=== PATIENT | female | born 1955 | race Caucasian/White ===

== ENCOUNTER 2017-02-24 13:04 | Outpatient (RCR) | payer BC, OTHER ==
[~2017-02-24 13:04] MED LIST: ASP81TEC PO; FISH OIL 1,2001 EAC1 PO
== END 2017-03-18 09:56 | disposition home or self-care (01) ==
PROVIDERS: ATTEND Orthopaedic Surgery
DX: M54.16 Radiculopathy, lumbar region (principal)

== ENCOUNTER 2017-03-30 15:53 | Outpatient (RCR) | payer BC | END 2017-04-20 08:51 | disposition home or self-care (01) | PROVIDERS: ATTEND Physician Assistant Medical | DX: M25.561 Pain in right knee (principal) ==

== ENCOUNTER → 2017-08-11 | Outpatient (CLI) | payer BC ==
--- NOTE | 2017-08-11 18:24 | Diagnostic Imaging Report ---
Bilateral screening mammogram 2D views with tomosynthesis The current study was also evaluated with a Computer Aided Detection (CAD) system. INDICATION: Screening. No current complaints stated on the questionnaire. COMPARISON: 08/10/2016. FINDINGS: The breasts are composed of heterogeneously dense parenchyma which may decrease mammographic sensitivity. There is no mass, architectural distortion, or suspicious cluster of calcifications seen. Allowing for technique and positional differences, no suspicious change is seen. IMPRESSION: Dense breasts with no definite change. ACR BI-RADS Category 2: Benign findings. Result letter will be mailed to the patient. Note: At least 10% of breast cancer is not imaged by mammography. Dictated by: Dictated on workstation # [id number]
== END ==
LOC: RAD 07:20
PROVIDERS: ATTEND Family Medicine
DX: Z12.31 Encounter for screening mammogram for malignant neoplasm of breast (principal)
CPT/HCPCS: 77067

== ENCOUNTER 2017-12-10 14:55 | Inpatient (IN) | payer BC ==
[~2017-12-10] VITALS: Ht 157.5 cm; Wt 48.8 kg
[2017-12-10] MEDS ORDERED: NS IV 1000 ML 1,000 ML IV SCH (15:47)
[2017-12-10] MEDS ORDERED: KETOROLAC 30 MG/ML VIAL IVP ONE (16:00)
[2017-12-10] MEDS ORDERED: ONDANSETRON 4 MG/2 ML (SDV) Z0FRAN IVP ONE (16:00)
[2017-12-10 16:11] LABS: BILIRUBIN,URINE NEGATIVE (NEGATIVE); CLARITY,URINE CLEAR; COLOR,URINE YELLOW; GLUCOSE, URINE (UA) NEGATIVE (NEGATIVE); KETONES,URINE 3+ (NEGATIVE); LEUKOCYTE ESTERASE ,URINE 1+ (NEGATIVE); NITRITE,URINE NEGATIVE (NEGATIVE); PH,URINE 6 (5-9); PROTEIN,URINE 2+ (NEGATIVE); UROBILINOGEN,URINE NORMAL (NORMAL)
[2017-12-10 16:19] LABS: BACTERIA,URINE NEGATIVE /HPF; RBC,URINE 0-2 /HPF; WBC,URINE RARE /HPF
[2017-12-10 16:19] LABS: BASOPHILS # (AUTO) 0.1 10^3/uL (0.0-0.1); BASOPHILS % (AUTO) 1 % (0-10); EOSINOPHILS # (AUTO) 0.1 10^3/uL (0.0-0.3); EOSINOPHILS % (AUTO) 2 % (0-10); HEMATOCRIT 35 % (35-52); LYMPHOCYTES # (AUTO) 1.8 X 10^3 (1.0-4.0); LYMPHOCYTES % (AUTO) 21 % (12-44); MEAN CORPUSCULAR HEMOGLOBIN 32 PG (25-34); MEAN CORPUSCULAR HGB CONC 34 G/DL (32-36); MEAN CORPUSCULAR VOLUME 93 FL (80-99); MEAN PLATELET VOLUME 9.9 FL (7.4-10.4); MONOCYTES # (AUTO) 0.6 X 10^3 (0.0-1.0); MONOCYTES % (AUTO) 7 % (0-12); NEUTROPHILS % (AUTO) 70 % (42-75); PLATELET COUNT 312 10^3/uL (130-400); RED BLOOD COUNT 3.81 10^6/uL (4.35-5.85); RED CELL DISTRIBUTION WIDTH 12.4 % (10.0-14.5); WHITE BLOOD COUNT 8.7 10^3/uL (4.3-11.0)
[2017-12-10 16:20] LABS: ALANINE AMINOTRANSFERASE 22 U/L (0-55); ALBUMIN 4.5 GM/DL (3.2-4.5); ALKALINE PHOSPHATASE 36 U/L (40-136); BILIRUBIN,TOTAL 0.8 MG/DL (0.1-1.0); BUN/CREATININE RATIO 18; CALCIUM 9.2 MG/DL (8.5-10.1); CARBON DIOXIDE 25 MMOL/L (21-32); CHLORIDE 99 MMOL/L (98-107); CREATININE SERUM 0.85 MG/DL (0.60-1.30); GFR ESTIMATED > 60; GLUCOSE 152 MG/DL (70-105); POTASSIUM 3.5 MMOL/L (3.6-5.0); SODIUM 136 MMOL/L (135-145); TOTAL PROTEIN 7.2 GM/DL (6.4-8.2)
[2017-12-10] MEDS ORDERED: fentaNYL INJECTION 100 MCG/2 ML AMP IVP PRN (16:30)
[2017-12-10] MEDS ORDERED: fentaNYL INJECTION 100 MCG/2 ML AMP IVP ONE (17:00)
--- NOTE | 2017-12-10 17:09 | Diagnostic Imaging Report ---
EXAMINATION: CHEST (PA AND LATERAL). CLINICAL INDICATION: 62-year-old female, sudden onset right rib pain. COMPARISON: None. FINDINGS: Heart size and mediastinal contours are unremarkable. There is no identified pneumothorax. There is no pleural effusion. There is no identified focal airspace consolidation. There is an anchor overlying the left humeral head. There is no identified displaced rib fracture. There are moderate right acromioclavicular degenerative changes. There are mild disc degenerative changes of the thoracic spine. IMPRESSION: 1. No identified acute cardiopulmonary abnormality. 2. No identified displaced rib fracture. Dictated on workstation # [id number]
[2017-12-10] MEDS ORDERED: HYDROmorphone (DILAUDID) 2 MG/ML VIAL IVP STA ×2 (17:11→19:02)
--- NOTE | 2017-12-10 17:13 | ED General ---
General Chief Complaint: Chest Wall/Rib Pain Stated Complaint: PAIN RIGHT LOWER SIDE Nursing Triage Note: SUDDEN ONSET OF RIGHT SIDED RIB PAIN. STATES SHE HAS BEEN CLEANING TODAY. Nursing Sepsis Screen: No Definite Risk Source of Information: Patient Exam Limitations: No Limitations History of Present Illness Date Seen by Provider: Dec 10, 2017 Time Seen by Provider: 15:44 Initial Comments This 62-year-old woman presents to the emergency room with fairly abrupt onset of right flank pain just beneath the right lateral costal margin with associated nausea and vomiting. She denies any fever, area, or urinary changes. She does have intermittent constipation but has had a bowel movement last night and again today. Pain started this afternoon. Allergies and Home Medications Allergies Coded Allergies: No Known Drug Allergies (Unverified , 03/24/10) Patient Home Medication List Home Medication List Reviewed: Yes Constitutional: no symptoms reported EENTM: see HPI Cardiovascular: no symptoms reported Gastrointestinal: see HPI Genitourinary: no symptoms reported : No Musculoskeletal: no symptoms reported Skin: no symptoms reported Psychiatric/Neurological: No Symptoms Reported Hematologic/Lymphatic: No Symptoms Reported Immunological/Allergic: no symptoms reported Past Sfocjpd-Nxfayo-Xyteoy Hx Patient Social History Alcohol Use: Occasionally Uses Recreational Drug Use: No Recent Foreign Travel: No Contact w/Someone Who Travel: No Recent Infectious Disease Expo: No Surgeries History of Surgeries: Yes Surgeries: Orthopedic Respiratory History of Respiratory Disorde: No Cardiovascular History of Cardiac Disorders: No Neurological History of Neurological Disord: No Reproductive System : No Hx Reproductive Disorders: No Sexually Transmitted Disease: No Genitourinary History of Genitourinary Disor: No Gastrointestinal History of Gastrointestinal Di: No Musculoskeletal History of Musculoskeletal Dis: No Endocrine History of Endocrine Disorders: No HEENT History of HEENT Disorders: No Cancer History of Cancer: No Did You Recieve Any Treatments: No Psychosocial History of Psychiatric Problem: No Integumentary History of Skin or Integumenta: No Blood Transfusions History of Blood Disorders: No Physical Exam Vital Signs Vital Signs - First Documented 12/10/17 15:11 Temp 96.5 Pulse 69 Resp 18 B/P (MAP) 120/58 (78) Pulse Ox 100 Capillary Refill : Less Than 3 Seconds General Appearance: WD/WN, Moderate Distress, Thin HEENT: PERRL/EOMI, Normal ENT Inspection Respiratory: Chest Non Tender, Lungs Clear, Normal Breath Sounds, No Accessory Muscle Use, No Respiratory Distress Cardiovascular: Regular Rate, Rhythm, No Edema, No Murmur Gastrointestinal: Normal Bowel Sounds, Non Tender, Soft Extremity: Normal Inspection, No Pedal Edema Neurologic/Psychiatric: Alert, Oriented x3, No Motor/Sensory Deficits, Normal Mood/Affect, paper cone grader II-XII Norm as Tested Skin: Normal Color, Warm/Dry Progress/Results/Core Measures Suspected Sepsis Recent Fever Within 48 Hours: No Infection Criteria Present: None New/Unexplained Altered Menta: No Sepsis Screen: No Definite Risk Sepsis Diagnosis: SIRS Temperature:96.5 Pulse: 69 Respiratory Rate: 18 Laboratory Tests 12/10/17 15:50: White Blood Count 8.7 Blood Pressure 120 /58 Mean: 78 Laboratory Tests 12/10/17 15:50: Creatinine 0.85, Platelet Count 312, Total Bilirubin 0.8 Results/Orders Lab Results Laboratory Tests Test 12/10/17 15:50 12/10/17 16:05 Range/Units White Blood Count 8.7 4.3-11.0 10^3/uL Red Blood Count 3.81 L 4.35-5.85 10^6/uL Hemoglobin 12.0 11.5-16.0 G/DL Hematocrit 35 35-52 % Mean Corpuscular Volume 93 80-99 FL Mean Corpuscular Hemoglobin 32 25-34 PG Mean Corpuscular Hemoglobin Concent 34 32-36 G/DL Red Cell Distribution Width 12.4 10.0-14.5 % Platelet Count 312 130-400 10^3/uL Mean Platelet Volume 9.9 7.4-10.4 FL Neutrophils (%) (Auto) 70 42-75 % Lymphocytes (%) (Auto) 21 12-44 % Monocytes (%) (Auto) 7 0-12 % Eosinophils (%) (Auto) 2 0-10 % Basophils (%) (Auto) 1 0-10 % Neutrophils # (Auto) 6.0 1.8-7.8 X 10^3 Lymphocytes # (Auto) 1.8 1.0-4.0 X 10^3 Monocytes # (Auto) 0.6 0.0-1.0 X 10^3 Eosinophils # (Auto) 0.1 0.0-0.3 10^3/uL Basophils # (Auto) 0.1 0.0-0.1 10^3/uL D-Dimer < 0.27 0.00-0.49 UG/ML Sodium Level 136 135-145 MMOL/L Potassium Level 3.5 L 3.6-5.0 MMOL/L Chloride Level 99 98-107 MMOL/L Carbon Dioxide Level 25 21-32 MMOL/L Anion Gap 12 5-14 MMOL/L Blood Urea Nitrogen 15 7-18 MG/DL Creatinine 0.85 0.60-1.30 MG/DL Estimat Glomerular Filtration Rate > 60 BUN/Creatinine Ratio 18 Glucose Level 152 H 70-105 MG/DL Calcium Level 9.2 8.5-10.1 MG/DL Total Bilirubin 0.8 0.1-1.0 MG/DL Aspartate Amino Transf (AST/SGOT) 29 5-34 U/L Alanine Aminotransferase (ALT/SGPT) 22 0-55 U/L Alkaline Phosphatase 36 L 40-136 U/L Total Protein 7.2 6.4-8.2 GM/DL Albumin 4.5 3.2-4.5 GM/DL Urine Color YELLOW Urine Clarity CLEAR Urine pH 6 5-9 Urine Specific [place] 1.025 H 1.016-1.022 Urine Protein 2+ H NEGATIVE Urine Glucose (UA) NEGATIVE NEGATIVE Urine Ketones 3+ H NEGATIVE Urine Nitrite NEGATIVE NEGATIVE Urine Bilirubin NEGATIVE NEGATIVE Urine Urobilinogen NORMAL NORMAL MG/DL Urine Leukocyte Esterase 1+ H NEGATIVE Urine RBC (Auto) 2+ H NEGATIVE Urine RBC 0-2 /HPF Urine WBC RARE /HPF Urine Squamous Epithelial Cells NONE /HPF Urine Crystals NONE /LPF Urine Bacteria NEGATIVE /HPF Urine Casts NONE /LPF Urine Mucus NEGATIVE /LPF Urine Culture Indicated NO My Orders Orders - ALEXANDRIA PRAJAPATI MD Ua Culture If Indicated (12/10/17 15:20) Ondansetron Injection (Zofran Injectio (12/10/17 16:00) Ketorolac Injection (Toradol Injection) (12/10/17 16:00) Saline Lock/Iv-Start (12/10/17 15:47) Ns Iv 1000 Ml (Sodium Chloride 0.9%) (12/10/17 15:47) Cbc With Automated Diff (12/10/17 15:48) Comprehensive Metabolic Panel (12/10/17 15:48) Fentanyl Injection (Sublimaze Injection (12/10/17 16:30) Chest Pa/Lat (2 View) (12/10/17 16:46) Fentanyl Injection (Sublimaze Injection (12/10/17 17:00) Hydromorphone Injection (Dilaudid Inject (12/10/17 17:11) Ct Abdomen/Pelvis W (12/10/17 17:16) Iohexol Injection (Omnipaque 350 Mg/Ml 1 (12/10/17 17:30) Di Iv Start (Assessment) .on IV start (12/10/17 17:20) Sodium Chloride Flush (Catheter Flush Sy (12/10/17 17:30) Ns (Ivpb) (Sodium Chloride 0.9%) (12/10/17 17:30) Pharmacy Communication (Pharmacy Communi (12/10/17 17:20) Hydromorphone Injection (Dilaudid Inject (12/10/17 19:02) Fibrin Degradation Products (12/10/17 19:09) Medications Given in ED Current Medications Medications Dose Ordered Sig/Sam Route Start Time Stop Time Status Last Admin Dose Admin Fentanyl Citrate 50 mcg Q1H PRN IVP 12/10/17 16:30 12/10/17 21:10 DC 12/10/17 16:27 50 MCG Fentanyl Citrate 75 mcg ONCE ONCE IVP 12/10/17 17:00 12/10/17 17:01 DC 12/10/17 16:51 75 MCG Iohexol 100 ml ONCE ONCE IV 12/10/17 17:30 12/10/17 17:31 DC 12/10/17 17:35 75 ML Ketorolac Tromethamine 15 mg ONCE ONCE IVP 12/10/17 16:00 12/10/17 16:01 DC 12/10/17 15:55 15 MG Ondansetron HCl 8 mg ONCE ONCE IVP 12/10/17 16:00 12/10/17 16:01 DC 12/10/17 15:55 8 MG Sodium Chloride 10 ml NEEDED PRN IV 12/10/17 17:30 12/10/17 17:35 10 ML Sodium Chloride 250 ml ONCE ONCE IV 12/10/17 17:30 12/10/17 17:31 DC 12/10/17 17:35 80 ML Vital Signs/I&O Vital Sign - Last 12Hours 12/10/17 12/10/17 15:11 20:29 Temp 96.5 96.5 Pulse 69 69 Resp 18 18 B/P (MAP) 120/58 (78) 117/56 (78) Pulse Ox 100 100 Capillary Refill : Less Than 3 Seconds Blood Pressure Mean: 78 Progress Note : Progress Note Patient was initially treated with IV fluids, Toradol, and Zofran. Toradol did not help her pain at all. Fentanyl 50 g followed by 75 g were administered, and patient still had pain. She then received multiple doses of Dilaudid. Urine showed no evidence of infection or hematuria. CT abdomen and pelvis was obtained with no acute pathology found to explain her pain. There was a significant amount of stool in the right colon and some fecalized stool in the small bowel. This could potentially be a source of her pain. Chest x-ray and d -dimer suggested no pulmonary pathology. There was no tenderness over the chest wall, in the muscles of the back, or in the soft abdomen. Case was discussed with Dr. Ye and Dr. Ellison. Dr. Ye presented to the emergency room to assess the patient. Dr. Ellison would like to treat constipation with enema and glycerin suppository. Dr. Ye would like to treat with MiraLAX. Both were included in the bridging orders. Diagnostic Imaging Diagonstic Imaging: Xray Plain Films/CT/US/NM/MRI: chest Comments Chest x-ray viewed by me and report reviewed. See report below: NAME: JACKELYN CARNEY MED REC#: [id number] PT STATUS: REG ER : 1955 PHYSICIAN: ALEXANDRIA PRAJAPATI MD ADMIT DATE: 12/10/17/ER Draft Date of Exam:12/10/17 CHEST PA/LAT (2 VIEW) EXAMINATION: CHEST (PA AND LATERAL). CLINICAL INDICATION: 62-year-old female, sudden onset right rib pain. COMPARISON: None. FINDINGS: Heart size and mediastinal contours are unremarkable. There is no identified pneumothorax. There is no pleural effusion. There is no identified focal airspace consolidation. There is an anchor overlying the left humeral head. There is no identified displaced rib fracture. There are moderate right acromioclavicular degenerative changes. There are mild disc degenerative changes of the thoracic spine. IMPRESSION: 1. No identified acute cardiopulmonary abnormality. 2. No identified displaced rib fracture. Dictated on workstation # [id number] Dict: 12/10/17 1705 Trans: 12/10/17 170 [id number] Interpreted by: SERA RADFORD MD Diagonstic Imaging: CT Plain Films/CT/US/NM/MRI: abdomen, pelvis Comments CT abdomen and pelvis viewed by me. Report reviewed and discussed with the radiologist. See report below: NAME: JACKELYN CARNEY [facility] REC#: [id number] PT STATUS: REG ER : 1955 PHYSICIAN: ALEXANDRIA PRAJAPATI MD ADMIT DATE: 12/10/17/ER Signed Date of Exam: 12/10/17 CT ABDOMEN/PELVIS W PROCEDURE: CT abdomen and pelvis with contrast. TECHNIQUE: Multiple contiguous axial images were obtained through the abdomen and pelvis after administration of intravenous contrast. INDICATION: Right flank pain. Nausea and vomiting. Loose stools. Cold sweats. COMPARISON: None. FINDINGS: Included portions of the lung bases are clear. CT abdomen: Normal appendix cannot be adequately identified, but there is no pericecal inflammation. Moderate amount of fecalized stool is noted within the distal small bowel in the lower pelvis. Small bowel loops however are nondistended. Moderate air and stool is noted scattered throughout the colon. The kidneys, adrenal glands, spleen, pancreas, and liver have a normal CT appearance. There is no loculated fluid collection, free fluid, nor free air within the abdomen. No abnormal mesenteric or retroperitoneal adenopathy is seen. Bony structures show no acute abnormalities. CT pelvis: Urinary bladder is unopacified. There is no loculated fluid collection, free fluid, nor free air within the pelvis. No abnormal lymph nodes are identified. Bony structures show no acute abnormalities. IMPRESSION: 1. Moderate amount of fecalized stool within distal small bowel. This is nonspecific, but can be seen with delayed transit. 2. Moderate colonic air and stool. Please correlate for constipation. 3. Appendix is not definitely identified, but there is no indirect evidence of acute appendicitis. Dictated by: Dictated on workstation # [id number] Dict: 12/10/17 1737 Trans: 12/10/17 194 Interpreted by: BART NARAYANAN MD Electronically signed by: BART NARAYANAN MD 12/10/17 1943 Reviewed: Reviewed by Me, Discussed w/Radiologist Departure Communication (Admissions) Time/Spoke to Admitting Phy: 19:[address] Ellison Time/Spoke to Consulting Phy: 19:00 Communication/Consulting Dr. Ye Impression Impression: Primary Impression: Right flank pain Additional Impressions: Nausea and vomiting Qualified Codes: R11.2 - Nausea with vomiting, unspecified Constipation Qualified Codes: K59.00 - Constipation, unspecified Disposition: ADMITTED INPATIENT Condition: Improved Admissions Decision to Admit Reason: Admit from ER (General) Decision to Admit/Date: Dec 10, 2017 Time/Decision to Admit Time: 19:00 Departure-Patient Inst. Referrals: SHAR LAZO MD (PCP/Family) Primary Care Physician ALEXANDRIA PRAJAPATI MD Dec 10, 2017 17:13
[2017-12-10] MEDS ORDERED: IOHEXOL 350 MG/ML 100 ML (OMNIPAQUE 350) VIAL IV ONE (17:30)
[2017-12-10] MEDS ORDERED: NS 250 ML (IVPB) BAG IV ONE (17:30)
[2017-12-10] MEDS: CATHETER FLUSH 10 ML SYR IV PRN (17:35)
--- NOTE | 2017-12-10 17:52 | Diagnostic Imaging Report ---
PROCEDURE: CT abdomen and pelvis with contrast. TECHNIQUE: Multiple contiguous axial images were obtained through the abdomen and pelvis after administration of intravenous contrast. INDICATION: Right flank pain. Nausea and vomiting. Loose stools. Cold sweats. COMPARISON: None. FINDINGS: Included portions of the lung bases are clear. CT abdomen: Normal appendix cannot be adequately identified, but there is no pericecal inflammation. Moderate amount of fecalized stool is noted within the distal small bowel in the lower pelvis. Small bowel loops however are nondistended. Moderate air and stool is noted scattered throughout the colon. The kidneys, adrenal glands, spleen, pancreas, and liver have a normal CT appearance. There is no loculated fluid collection, free fluid, nor free air within the abdomen. No abnormal mesenteric or retroperitoneal adenopathy is seen. Bony structures show no acute abnormalities. CT pelvis: Urinary bladder is unopacified. There is no loculated fluid collection, free fluid, nor free air within the pelvis. No abnormal lymph nodes are identified. Bony structures show no acute abnormalities. IMPRESSION: 1. Moderate amount of fecalized stool within distal small bowel. This is nonspecific, but can be seen with delayed transit. 2. Moderate colonic air and stool. Please correlate for constipation. 3. Appendix is not definitely identified, but there is no indirect evidence of acute appendicitis. Dictated by: Dictated on workstation # [id number]
--- NOTE | 2017-12-10 20:02 | Consultation ---
History of Present Illness History of Present Illness Patient Consulted On(peter/time) 12/10/17 20:02 Date Seen by Provider: Dec 10, 2017 Time Seen by Provider: 20:02 History of Present Illness Consult requested by Dr. Garcia for right flank pain. Seen and evaluated in emergency dept. Patient is a 62 year old female who was doing well yesterday morning and then had sudden pain the right flank area this afternoon. She reports it as being just below the right ribs and some back pain. It does not hurt to touch. She has had some nausea and emesis. She has had lots of issues with constipation but usually takes Miralax about 2 time per week. She had a bowel movement today and last night. Patient states nothing is really making the pain better and she rates it at a 10/10. Nothing is really making it worse either. Denies having any fever sweats chills shortness of breath or chest pain. Ct scan i reviewed and has fecalization of small bowel and colon with lot of stool especially right colon, no signs of appendicitis, but appendix not all that well visualized. Allergies and Home Medications Allergies Coded Allergies: No Known Drug Allergies (Unverified , 03/24/10) Patient Home Medication List Home Medication List Reviewed: Yes Past Kvbcvxc-Mfmotq-Icacmx Hx Patient Social History Alcohol Use: Occasionally Uses Recreational Drug Use: No Recent Foreign Travel: No Contact w/Someone Who Travel: No Recent Infectious Disease Expo: No Surgeries History of Surgeries: Yes Surgeries: Orthopedic Respiratory History of Respiratory Disorde: No Cardiovascular History of Cardiac Disorders: No Neurological History of Neurological Disord: No Reproductive System Hx Reproductive Disorders: No Sexually Transmitted Disease: No Genitourinary History of Genitourinary Disor: No Gastrointestinal History of Gastrointestinal Di: No Musculoskeletal History of Musculoskeletal Dis: No Endocrine History of Endocrine Disorders: No HEENT History of HEENT Disorders: No Cancer History of Cancer: No Psychosocial History of Psychiatric Problem: No Integumentary History of Skin or Integumenta: No Blood Transfusions History of Blood Disorders: No Family Medical History Significant Family History: No Pertinent Family Hx Review of Systems-General Constitutional: no symptoms reported EENTM: no symptoms reported Respiratory: no symptoms reported Cardiovascular: no symptoms reported Gastrointestinal: see HPI, constipation Genitourinary: no symptoms reported Musculoskeletal: no symptoms reported Skin: no symptoms reported Psychiatric/Neurological: No Symptoms Reported Physical Exam-General Problems Physical Exam Vital Signs Vital Signs - First Documented 12/10/17 15:11 Temp 96.5 Pulse 69 Resp 18 B/P (MAP) 120/58 (78) Pulse Ox 100 Capillary Refill : Less Than 3 Seconds General Appearance: moderate distress HEENT: PERRL/EOMI, normal ENT inspection Neck: non-tender, full range of motion, supple, normal inspection Respiratory: chest non-tender, no respiratory distress, no accessory muscle use Cardiovascular: regular rate, rhythm Gastrointestinal: non tender, soft, no organomegaly, no pulsatile mass Rectal: deferred Back: normal inspection, other (right flank with no visual abnormality.) Extremities: normal range of motion, normal inspection, no pedal edema Neurologic/Psychiatric: substance abuse therapist II-XII nml as tested, no motor/sensory deficits, alert, normal mood/affect, oriented x 3 Skin: normal color, warm/dry (no rash) Lymphatic: no adenopathy Data Review Labs Laboratory Tests 12/10/17 15:50: White Blood Count 8.7, Red Blood Count 3.81L, Hemoglobin 12.0, Hematocrit 35, Mean Corpuscular Volume 93, Mean Corpuscular Hemoglobin 32, Mean Corpuscular Hemoglobin Concent 34, Red Cell Distribution Width 12.4, Platelet Count 312, Mean Platelet Volume 9.9, Neutrophils (%) (Auto) 70, Lymphocytes (%) (Auto) 21, Monocytes (%) (Auto) 7, Eosinophils (%) (Auto) 2, Basophils (%) (Auto) 1, Neutrophils # (Auto) 6.0, Lymphocytes # (Auto) 1.8, Monocytes # (Auto) 0.6, Eosinophils # (Auto) 0.1, Basophils # (Auto) 0.1, D-Dimer < 0.27, Sodium Level 136, Potassium Level 3.5L, Chloride Level 99, Carbon Dioxide Level 25, Anion Gap 12, Blood Urea Nitrogen 15, Creatinine 0.85, Estimat Glomerular Filtration Rate > 60, BUN/Creatinine Ratio 18, Glucose Level 152H, Calcium Level 9.2, Total Bilirubin 0.8, Aspartate Amino Transf (AST/SGOT) 29, Alanine Aminotransferase (ALT/SGPT) 22, Alkaline Phosphatase 36L, Total Protein 7.2, Albumin 4.5 12/10/17 16:05: Urine Color YELLOW, Urine Clarity CLEAR, Urine pH 6, Urine Specific [place] 1.025H, Urine Protein 2+H, Urine Glucose (UA) NEGATIVE, Urine Ketones 3+H, Urine Nitrite NEGATIVE, Urine Bilirubin NEGATIVE, Urine Urobilinogen NORMAL, Urine Leukocyte Esterase 1+H, Urine RBC (Auto) 2+H, Urine RBC 0-2, Urine WBC RARE, Urine Squamous Epithelial Cells NONE, Urine Crystals NONE, Urine Bacteria NEGATIVE, Urine Casts NONE, Urine Mucus NEGATIVE, Urine Culture Indicated NO Assessment/Plan Assessment/Plan Assessment/Plan right flank pain nausea and vomiting constipation wbc normal and abdominal exam normal so i don't the appendix is abnormal even though it was not visualized by cat scan. she does have fecalizaion of small bowel and colon with large amount of stool especially in the right colon would recommend miralax and clear liquids for bowel regimen in addition to suppository and enema already ordered. repeat labs in am follow closely. Would also consider zoster since amount of pain, but no physical signs yet, but I feel this is most likely related to constipation. ODESSA CAGE DO Dec 10, 2017 20:02
[2017-12-10] MEDS ORDERED: POLYETHYLENE GLYCOL 17 GM (MIRALAX) PACK PO ONE (21:15)
[2017-12-10] MEDS ORDERED: POLYETHYLENE GLYCOL 17 GM (MIRALAX) PACK PO PRN (21:15)
[2017-12-10] MEDS ORDERED: FLEET ENEMA ADULT 1 EA BTL PR ONE (21:15)
[2017-12-10] MEDS: HYDROmorphone (DILAUDID) 2 MG/ML VIAL IV PRN ×2 (21:29→23:54)
[2017-12-10] MEDS ORDERED: GLYCERIN ADULT SUPPOSITORY PR ONE (21:30)
[2017-12-10] MEDS: NS IV 1000 ML 1,000 ML IV SCH (21:35)
[2017-12-11] VITALS (7 sets, daily range): BP systolic 97–123; BP diastolic 53–64
[2017-12-11] MEDS ORDERED: GLYCERIN ADULT SUPPOSITORY ONE (00:20)
[2017-12-11] MEDS: KETOROLAC 15 MG/ML VIAL IV PRN ×3 (01:28→20:23)
[2017-12-11] MEDS: HYDROmorphone (DILAUDID) 2 MG/ML VIAL IV PRN ×3 (05:47→23:01)
[2017-12-11] MEDS: NS IV 1000 ML 1,000 ML IV SCH (07:53)
[2017-12-11] MEDS: FAMOTIDINE 20MG/2ML IV (PEPCID) IV SCH ×2 (08:25→20:21)
--- NOTE | 2017-12-11 10:43 | Progress Note ---
Subjective Date Seen by Provider: Dec 11, 2017 Time Seen by Provider: 10:36 Subjective/Events-last exam Patient starting to have small amount of stools. Pain down to about a 5/10 c pain management. Had some slight emesis. Denies fever chills shortness of breath or chest pain. Objective Exam Vital Signs Date Time Temp Pulse Resp B/P (MAP) Pulse Ox O2 Delivery O2 Flow Rate FiO2 12/11/17 08:30 96.0 75 20 97/54 (68) 96 Room Air 12/11/17 04:00 98.5 67 18 113/64 (80) 96 Room Air 12/11/17 00:00 97.8 72 18 115/56 (75) 94 Room Air 12/10/17 20:45 Room Air 12/10/17 20:29 96.5 69 18 117/56 (78) 100 12/10/17 15:11 96.5 69 18 120/58 (78) 100 I & O 12/11/17 07:00 Intake Total 1300 ml Output Total 800 ml Balance 500 ml Capillary Refill : Less Than 3 Seconds General Appearance: No Apparent Distress (laying in bed), WD/WN, Thin HEENT: PERRL/EOMI, Normal ENT Inspection Neck: Non Tender, Supple Respiratory: Chest Non Tender, No Accessory Muscle Use, No Respiratory Distress Cardiovascular: Regular Rate, Rhythm, No Edema, No Murmur Gastrointestinal: non tender (with deep palpation), soft Extremity: Normal Inspection, No Pedal Edema Neurologic/Psychiatric: Alert, Oriented x3, No Motor/Sensory Deficits, Normal Mood/Affect, live in caregiver II-XII Norm as Tested Skin: Normal Color, Warm/Dry (no rash) Lymphatic: No Adenopathy Results Lab Laboratory Tests 12/10/17 15:50: White Blood Count 8.7, Red Blood Count 3.81L, Hemoglobin 12.0, Hematocrit 35, Mean Corpuscular Volume 93, Mean Corpuscular Hemoglobin 32, Mean Corpuscular Hemoglobin Concent 34, Red Cell Distribution Width 12.4, Platelet Count 312, Mean Platelet Volume 9.9, Neutrophils (%) (Auto) 70, Lymphocytes (%) (Auto) 21, Monocytes (%) (Auto) 7, Eosinophils (%) (Auto) 2, Basophils (%) (Auto) 1, Neutrophils # (Auto) 6.0, Lymphocytes # (Auto) 1.8, Monocytes # (Auto) 0.6, Eosinophils # (Auto) 0.1, Basophils # (Auto) 0.1, D-Dimer < 0.27, Sodium Level 136, Potassium Level 3.5L, Chloride Level 99, Carbon Dioxide Level 25, Anion Gap 12, Blood Urea Nitrogen 15, Creatinine 0.85, Estimat Glomerular Filtration Rate > 60, BUN/Creatinine Ratio 18, Glucose Level 152H, Calcium Level 9.2, Total Bilirubin 0.8, Aspartate Amino Transf (AST/SGOT) 29, Alanine Aminotransferase (ALT/SGPT) 22, Alkaline Phosphatase 36L, Total Protein 7.2, Albumin 4.5 12/10/17 16:05: Urine Color YELLOW, Urine Clarity CLEAR, Urine pH 6, Urine Specific [place] 1.025H, Urine Protein 2+H, Urine Glucose (UA) NEGATIVE, Urine Ketones 3+H, Urine Nitrite NEGATIVE, Urine Bilirubin NEGATIVE, Urine Urobilinogen NORMAL, Urine Leukocyte Esterase 1+H, Urine RBC (Auto) 2+H, Urine RBC 0-2, Urine WBC RARE, Urine Squamous Epithelial Cells NONE, Urine Crystals NONE, Urine Bacteria NEGATIVE, Urine Casts NONE, Urine Mucus NEGATIVE, Urine Culture Indicated NO Assessment/Plan Assessment/Plan Assessment/Plan right flank pain constipation patient starting to have some bowel movements, with pain control her pain is down to a 5/10. continue bowel regimen pain control ordered KUB and labs for this morning Clinical Quality Measures DVT/VTE Risk/Contraindication: Risk Factor Score Per Nursin RFS Level Per Nursing on Admit: 2=Moderate ODESSA CAGE DO Dec 11, 2017 10:43
[2017-12-11 10:52] LABS: HEMOGLOBIN 10.4 G/DL (11.5-16.0); MEAN PLATELET VOLUME 9.5 FL (7.4-10.4); RED BLOOD COUNT 3.28 10^6/uL (4.35-5.85); RED CELL DISTRIBUTION WIDTH 12.3 % (10.0-14.5); WHITE BLOOD COUNT 9.7 10^3/uL (4.3-11.0)
[2017-12-11 11:10] LABS: BUN/CREATININE RATIO 13; CALCIUM 7.6 MG/DL (8.5-10.1); CARBON DIOXIDE 25 MMOL/L (21-32); CHLORIDE 99 MMOL/L (98-107); CREATININE SERUM 0.67 MG/DL (0.60-1.30); GFR ESTIMATED > 60; GLUCOSE 104 MG/DL (70-105); MAGNESIUM 2.1 MG/DL (1.8-2.4); POTASSIUM 3.3 MMOL/L (3.6-5.0); SODIUM 132 MMOL/L (135-145)
--- NOTE | 2017-12-11 11:48 | History & Physical-Hospitalist ---
History of Present Illness Source: patient, family, RN/MD Exam Limitations: no limitations Date Seen 12/11/17 Time Seen by Provider: 00:00 Attending Physician Mary Ellen Ellison MD PCP Karen Ocampo MD Referring Physician Date of Admission Dec 10, 2017 at 20:14 Home Medications & Allergies Home Medications Reviewed patient Home Medication Reconciliation performed by pharmacy medication reconciliations astro technician and/or nursing. Patients Allergies have been reviewed. Allergies Allergies Coded Allergies No Known Drug Allergies (Unverified03/24/10) Past Yapatqg-Shqmey-Ptckwt Hx Past Med/Social Hx: Reviewed Nursing Past Med/Soc Hx Patient Social History Alcohol Use: Occasionally Uses Number of Drinks Today: 0 Alcohol Beverage of Choice: Beer Recreational Drug Use: No Smoking Status: Never a Smoker Physical Abuse Screen: No Sexual Abuse: No Recent Foreign Travel: No Contact w/other who traveled: No Recent Hopitalizations: No Recent Infectious Disease Expo: No Immunizations Up To Date Pediatric: Yes Date of Pneumonia Vaccine: Jul 14, 2017 Date of Influenza Vaccine: Jul 14, 2017 Seasonal Allergies Seasonal Allergies: No Past Medical History Surgeries: Orthopedic Currently Using CPAP: No Currently Using BIPAP: No : No Reproductive: No Sexually Transmitted Disease: No HIV/AIDS: No Female Reproductive Disorders: Ovarian Cyst Gastrointestinal: Obstructive Bowel, Chronic Constipation, Hiatal Hernia Loss of Vision: Denies Hearing Impairment: Denies Did You Recieve Any Treatments: No History of Blood Disorders: No Family History Patient reports no known family medical history. No Pertinent Family Hx Review of Systems Constitutional: see HPI Physical Exam Physical Exam Vital Signs Vital Signs - First Documented 12/10/17 12/10/17 15:11 20:45 Temp 96.5 Pulse 69 Resp 18 B/P (MAP) 120/58 (78) Pulse Ox 100 O2 Delivery Room Air Capillary Refill : Less Than 3 Seconds General Appearance: Other Results Results/Procedures Labs Laboratory Tests 12/10/17 15:50 12/11/17 10:44 Patient resulted labs reviewed. Assessment/Plan Admission Diagnosis Delete this note Admission Status: Observation Clinical Quality Measures DVT/VTE Risk/Contraindication: Risk Factor Score Per Nursin RFS Level Per Nursing on Admit: 2=Moderate LOAN RANKIN DO Dec 11, 2017 11:48
--- NOTE | 2017-12-11 11:55 | History & Physical ---
History of Present Illness History of Present Illness Reason for visit/HPI CC: Right flank pain w/N/V HPI: This is a 62-year-old white female clinic patient of Dr. Ocampo with the past medical history of constipation predominant irritable bowel syndrome who presents to the ER after right flank pain started abruptly at 1:15 PM yesterday. Apparently she was getting up from the couch began having pain that was so intense it brought tears to her eyes and became nauseated. The pain continued to be an issue and even though she was taking ibuprofen and taking a hot shower with hot water running over the right flank she continued to worsen. Her family brought her to the ER CT scan was obtained and workup was inconclusive regarding the source of her pain. There was a moderate amount of stool in the right colon which could possibly be the source so she was admitted placed on IV pain medication and anti-emetics and was seen by general surgery. She was given MiraLAX but she continued to have nausea and vomiting and pain. I did speak to urology who joined in consultation ordered a CT scan of the abdomen without IV contrast on stone protocol and it was no stone but improved amount of stool in the right colon. When I saw her she reports the pain was much improved just received Toradol and allotted and overall she felt better but still worried about where the pain was coming from. Date of Admission Dec 10, 2017 at 20:14 Date Seen by Provider: Dec 11, 2017 Time Seen by Provider: 11:00 I consulted on this patient on 12/11/17 11:55 Attending Physician Mary Ellen Ellison MD Admitting Physician Karen Ocampo MD Consult Allergies and Home Medications Allergies Coded Allergies: No Known Drug Allergies (Unverified , 03/24/10) Home Medications Cholecalciferol (Vitamin D3) 5,000 Unit Tablet, 5,000 UNIT PO DAILY, (Reported) Cyanocobalamin (Vitamin B-12) 5,000 Mcg Tab.rapdis, 5,000 MCG PO DAILY, ( Reported) Magnesium 250 Mg Tablet, 500 MG PO DAILY, (Reported) Meloxicam 15 Mg Tablet, 15 MG PO DAILY PRN, (Reported) Sertraline HCl 50 Mg Tablet, 50 MG PO DAILY, (Reported) Patient Home Medication List Home Medication List Reviewed: Yes Past Xbeckno-Aoruqn-Cvlzny Hx Past Med/Social Hx: Reviewed Nursing Past Med/Soc Hx, Reviewed and Corrections made Patient Social History Marrital Status: Alcohol Use: Occasionally Uses Number of Drinks Today: 0 Alcohol Beverage of Choice: Beer Recreational Drug Use: No Smoking Status: Never a Smoker Physical Abuse Screen: No Sexual Abuse: No Recent Foreign Travel: No Contact w/other who traveled: No Recent Hopitalizations: No Recent Infectious Disease Expo: No Immunizations Up To Date Pediatric: Yes Date of Pneumonia Vaccine: Jul 14, 2017 Date of Influenza Vaccine: Jul 14, 2017 Seasonal Allergies Seasonal Allergies: No Past Medical History Surgeries: Orthopedic Currently Using CPAP: No Currently Using BIPAP: No : No Reproductive: No Sexually Transmitted Disease: No HIV/AIDS: No Female Reproductive Disorders: Ovarian Cyst Gastrointestinal: Obstructive Bowel, Chronic Constipation, Hiatal Hernia, Irritable Bowel Musculoskeletal: Arthritis Loss of Vision: Denies Hearing Impairment: Denies Did You Recieve Any Treatments: No Psychosocial: Depression History of Blood Disorders: No Family History Reviewed and Corrections made Patient reports no known family medical history. No Pertinent Family Hx, Hypertension, Other Conditions/Hx (Hypothyroidism) Constitutional: see HPI, malaise EENTM: no symptoms reported Respiratory: no symptoms reported Cardiovascular: no symptoms reported Gastrointestinal: abdominal pain (RLQ), loss of appetite, nausea, vomiting Genitourinary: no symptoms reported Musculoskeletal: back pain Skin: no symptoms reported Psychiatric/Neurological: No Symptoms Reported All Other Systems Reviewed Negative Unless Noted: Yes Physical Exam Vital Signs Vital Signs - First Documented 12/10/17 12/10/17 15:11 20:45 Temp 96.5 Pulse 69 Resp 18 B/P (MAP) 120/58 (78) Pulse Ox 100 O2 Delivery Room Air Capillary Refill : Less Than 3 Seconds General Appearance: No Apparent Distress, WD/WN, Thin Eyes: Bilateral Eye Normal Inspection, Bilateral Eye PERRL, Bilateral Eye EOMI HEENT: PERRL/EOMI, TMs Normal, Normal ENT Inspection, Pharynx Normal Neck: Full Range of Motion, Normal Inspection, Non Tender, Supple, Carotid Bruit Respiratory: Chest Non Tender, Lungs Clear, Normal Breath Sounds, No Accessory Muscle Use, No Respiratory Distress Cardiovascular: Regular Rate, Rhythm, No Edema, No Gallop, No JVD, No Murmur, Normal Peripheral Pulses Gastrointestinal: Normal Bowel Sounds, No Organomegaly, No Pulsatile Mass, Soft , Tenderness (generalized RMQ) Back: Normal Inspection, No CVA Tenderness, No Vertebral Tenderness Extremity: Normal Capillary Refill, Normal Inspection, Normal Range of Motion, Non Tender, No Calf Tenderness, No Pedal Edema Neurologic/Psychiatric: Alert, Oriented x3, No Motor/Sensory Deficits, Normal Mood/Affect Skin: Normal Color, Warm/Dry Lymphatic: No Adenopathy Assessment/Plan Assessment and Plan Assessment: Severe right flank abdominal pain with moderate amount of stool on CT scan but CT without contrast negative for stone but history of irritable bowel syndrome constipation predominate likely partial colonic obstruction on the right side a source of the pain Depression Arthritis Plan: Maintain bowel regimen per Dr. Ye Pain medication Monitor labs DVT prophylaxis Anti-emetics Problems: (1) Colonic obstruction Status: Acute (2) Right flank pain Status: Acute (3) Nausea and vomiting Status: Acute Admission Diagnosis Admission Status: Observation Clinical Quality Measures DVT/VTE Risk/Contraindication: Risk Factor Score Per Nursin RFS Level Per Nursing on Admit: 2=Moderate Problem Qualifiers (1) Nausea and vomiting: Vomiting type: unspecified Vomiting Intractability: non-intractable Qualified Codes: R11.2 - Nausea with vomiting, unspecified LOAN RANKIN DO Dec 11, 2017 11:55
--- NOTE | 2017-12-11 11:55 | Diagnostic Imaging Report ---
INDICATION: Right flank pain COMPARISON: None. FINDINGS: A single view of the abdomen demonstrates mild constipation in the proximal colon. There is no obstruction, free air or free fluid. No abnormal calcifications are seen. Bony structures are normal. IMPRESSION: Mild proximal colonic constipation. Dictated by: Dictated on workstation # [id number]
[2017-12-11] MEDS: ONDANSETRON 4 MG/2 ML (SDV) Z0FRAN IV PRN ×2 (12:40→20:24)
--- NOTE | 2017-12-11 13:26 | Diagnostic Imaging Report ---
Clinical indication: Patient with right flank pain from yesterday. Exam: CT scan of the abdomen and pelvis performed without IV contrast or enteric contrast. Coronal and sagittal reformatted images were created. Comparison: CT scan abdomen and pelvis performed without contrast dated 12/10/2017. Findings: There is minimal atelectasis involving the posterior aspects of both lung bases. There are small degenerative spurs involving the thoracic lumbar spine. The liver, spleen, pancreas, gallbladder, and adrenal glands are unremarkable. Again seen, likely parapelvic cysts involving the left kidney. There is no evidence of hydronephrosis. Right kidney shows no other significant abnormality. There are no urinary tract stones seen. The bladder is partially fluid-filled with no gross stone seen. The previously seen multiple loops of fecalized small bowel in the pelvis has nearly completely resolved with only a small loop seen in the pelvis. There is a moderate amount of stool in the right colon. Otherwise, the stool load has significantly decreased. There is some dependently layering high density material within small bowel in the pelvis region. There is no intra-abdominal free air or free fluid. There is no evidence of intestinal obstruction. There is no significant lymphadenopathy. The remainder of this exam shows no significant interval change compared to the prior study of comparison. Impression: 1: Near resolution of the previously seen fecalized multiple loops of small bowel with a small amount seen in the pelvis region. There is interval decrease in stool load seen compared to the prior study. There is no evidence of intestinal obstruction. 2: There is no evidence of urinary tract stone or hydronephrosis. Again seen, suspected left renal parapelvic cysts. Dictated by: Dictated on workstation # [id number]
[2017-12-11] MEDS ORDERED: MELO15TA39 PO (13:50)
[2017-12-11] MEDS ORDERED: SERT50TA9 PO (13:50)
[2017-12-11] MEDS ORDERED: CYAN50008 PO (13:50)
[2017-12-11] MEDS ORDERED: CHOL500044 PO (13:50)
[2017-12-11] MEDS ORDERED: MAGN250T2 PO (13:50)
[2017-12-11] MEDS ORDERED: MELOXICAM 7.5 MG (MOBIC) TABLET PO PRN (14:15)
--- NOTE | 2017-12-11 14:30 | CONSULTATION REPORT ---
DATE OF SERVICE: 12/11/2017 CHIEF COMPLAINT: Right flank, back and right upper quadrant and lower quadrant pain. SUMMARY: A 62-year-old white lady presented to the emergency room with sudden onset of severe pain in the right flank radiating to the upper quadrant and lower quadrant and along the ribs, was completely normal before that and was associated with nausea and vomiting. She denies previous history of stones. No family history of stones. Dr. Ye ruled out gallbladder and the appendix. The patient had a CT abdomen and pelvis; however, with contrast that showed no abnormality in the kidneys or the ureters, no hydro. However, there is a white spot just at the area of the distal right ureter just above the bladder, questionable stone, although no hydro. PHYSICAL EXAMINATION: There is no rash in the back or the flank. No actual right CVA tenderness, some right upper quadrant tenderness. IMPRESSION: Right-sided pain flank, upper quadrant and lower quadrant with rib pain, rule out urolithiasis. PLAN: Noncontrast CT scan of the abdomen and pelvis and manage accordingly. Job ID: [id number] DocumentID: [id number] Dictated Date: 12/11/2017 12:04:18 Lawnmower Mechanic Date: 12/11/2017 14:30:08 Dictated By: NEHEMIAS CHONG MD
[2017-12-11] MEDS: ENOXAPARIN 40 MG/0.4 ML (LOVENOX) SYR SC SCH (14:47)
[2017-12-11] MEDS: POTASSIUM CHLORIDE INJ 20 MEQ in NS IV 1000 ML 1,000 ML IV SCH (14:47)
[2017-12-11] MEDS: SERTRALINE 50 MG (ZOLOFT) TABLET PO SCH (14:48)
[2017-12-11] MEDS ORDERED: MAGNESIUM CITRATE 300 ML BTL PO ONE (15:00)
[2017-12-11] MEDS ORDERED: PATIENT MAY USE OWN MEDS, ALL MC SCH (15:15)
[2017-12-12] MEDS: POTASSIUM CHLORIDE INJ 20 MEQ in NS IV 1000 ML 1,000 ML IV SCH ×2 (03:45→15:29)
[2017-12-12] MEDS: HYDROmorphone (DILAUDID) 2 MG/ML VIAL IV PRN ×5 (03:54→23:51)
[2017-12-12 04:00] VITALS: BP 116/63
[2017-12-12 06:17] LABS: BASOPHILS % (AUTO) 0 % (0-10); EOSINOPHILS % (AUTO) 1 % (0-10); HEMATOCRIT 32 % (35-52); HEMOGLOBIN 10.8 G/DL (11.5-16.0); LYMPHOCYTES # (AUTO) 1.8 X 10^3 (1.0-4.0); LYMPHOCYTES % (AUTO) 22 % (12-44); MEAN CORPUSCULAR HEMOGLOBIN 32 PG (25-34); MEAN CORPUSCULAR HGB CONC 33 G/DL (32-36); MEAN CORPUSCULAR VOLUME 94 FL (80-99); MEAN PLATELET VOLUME 10.5 FL (7.4-10.4); MONOCYTES # (AUTO) 1.1 X 10^3 (0.0-1.0); MONOCYTES % (AUTO) 13 % (0-12); NEUTROPHILS # (AUTO) 5.3 X 10^3 (1.8-7.8); NEUTROPHILS % (AUTO) 64 % (42-75); PLATELET COUNT 257 10^3/uL (130-400); RED BLOOD COUNT 3.42 10^6/uL (4.35-5.85); RED CELL DISTRIBUTION WIDTH 12.5 % (10.0-14.5); WHITE BLOOD COUNT 8.3 10^3/uL (4.3-11.0)
[2017-12-12 06:49] LABS: ALANINE AMINOTRANSFERASE 24 U/L (0-55); ALBUMIN 3.9 GM/DL (3.2-4.5); ALKALINE PHOSPHATASE 28 U/L (40-136); BILIRUBIN,TOTAL 0.7 MG/DL (0.1-1.0); BUN/CREATININE RATIO 9; CALCIUM 8.2 MG/DL (8.5-10.1); CARBON DIOXIDE 26 MMOL/L (21-32); CHLORIDE 102 MMOL/L (98-107); CREATININE SERUM 0.68 MG/DL (0.60-1.30); GFR ESTIMATED > 60; GLUCOSE 89 MG/DL (70-105); POTASSIUM 3.9 MMOL/L (3.6-5.0); SODIUM 136 MMOL/L (135-145); TOTAL PROTEIN 6.1 GM/DL (6.4-8.2)
[2017-12-12 07:22] VITALS: BP 128/58
[2017-12-12] MEDS: KETOROLAC 15 MG/ML VIAL IV PRN ×2 (07:42→22:37)
[2017-12-12] MEDS: ONDANSETRON 4 MG/2 ML (SDV) Z0FRAN IV PRN ×3 (07:42→23:51)
[2017-12-12] MEDS: FAMOTIDINE 20MG/2ML IV (PEPCID) IV SCH ×2 (07:42→21:35)
[2017-12-12] MEDS ORDERED: CYANOCOBALAMIN 5000 MCG PO SCH (09:00)
[2017-12-12] MEDS ORDERED: MAGNESIUM 500 MG PO SCH (09:00)
[2017-12-12] MEDS ORDERED: [UNRECOGNIZED DRUG - OTHER] PO SCH (09:00)
--- NOTE | 2017-12-12 10:01 | Diagnostic Imaging Report ---
CLINICAL INDICATION: Followup constipation. COMPARISON: KUB x-ray dated 12/11/2017. FINDINGS: There is interval evacuation of the previously seen stool in the right side of the abdomen. There is now small areas of stool within the left side of the colon. There is interval increased air distended loops of bowel overlying the right abdomen, mostly colon, which is nonspecific. There is no intra-abdominal free air. The remainder of this exam shows no significant interval change compared to the prior study of comparison. IMPRESSION: 1: Interval decreased stool burden with small amount of stool in the left colon and sigmoid colon region. 2: There is increased air distention of the colon overlying the right abdomen which is nonspecific. Dictated by: Dictated on workstation # [id number]
--- NOTE | 2017-12-12 11:05 | Progress Note-Urology ---
Progress Note-Urology Progress Notes/Assess & Plan Progress/Assessment & Plan NO EVIDENCE OF UROLITHIASES. WE WILL SEE PRN Final Diagnosis RT SIDED ABDOMINAL AND BACK/FLANK PAIN NEHEMIAS CHONG MD Dec 12, 2017 11:05 am
--- NOTE | 2017-12-12 11:30 | Progress Note-Standard ---
Standard Progress Note Progress Notes/Assess & Plan Date Seen 12/12/17 Time Seen by Provider: 10:30 Assess & Plan/Chief Complaint Patient doing about the same and still nauseated Did recall her brother had similar issue and it ended up being in the gallbladder after hida scan was obtained considering ultrasound was normal and I do recall that because I underwent a treated him Is going to ambulate today Mother and daughter and are at the bedside Initiated DVT prophylaxis with Lovenox due to immobile state Patient overall feels much better but still has the pain Spoke with Dr. Ye and he agrees with sofiya after the ultrasound will be done today Checked meds and labs Updated patient on the plan No fever, vital signs stable, pleasant, improved, frail, thin Regular rate and rhythm, clear to auscultation bilaterally Nontender abdominal exam Laboratory Tests 12/12/17 05:15 Assessment: Right flank pain with no stone noted on CT scan but a large amount of bowel contents on the right side now repeat CT scan and abdominal x-ray showed no stool on the right but pain continues suspicious for gallbladder disease obtaining ultrasound hida scan due to similar presentation of her brother a few years ago Bowel resection 40 years ago Plan: Gallbladder ultrasound Hida scan Pain control Ambulate Check labs in a.m. Monitor closely Antibiotics Labs Laboratory Tests 12/10/17 15:50 12/11/17 10:44 12/12/17 05:15 Diagnosis/Problems Diagnosis/Problems (1) Colonic obstruction Status: Acute (2) Right flank pain Status: Acute (3) Nausea and vomiting Status: Acute Qualifiers: Qualified Codes: R11.2 - Nausea with vomiting, unspecified LOAN RANKIN DO Dec 12, 2017 11:30
[2017-12-12 11:59] VITALS: BP 119/58
--- NOTE | 2017-12-12 14:22 | Progress Note ---
Subjective Date Seen by Provider: Dec 12, 2017 Time Seen by Provider: 10:00 Subjective/Events-last exam Patient feeling the same as yesterday. Pain still in right flank about 5/10. Some occasional nausea and emesis. Denies fever sweats chlls shortness of breath or chest pain. Reviewed abdominal x ray stool in left side of abdomen. Objective Exam Vital Signs Date Time Temp Pulse Resp B/P (MAP) Pulse Ox O2 Delivery O2 Flow Rate FiO2 12/12/17 11:59 98.1 77 19 119/58 (78) 95 Room Air 12/12/17 07:22 98.8 75 19 128/58 (81) 97 Room Air 12/12/17 04:00 99.8 71 18 116/63 (80) 95 Room Air 12/11/17 23:39 99.0 72 18 114/56 (75) 92 Room Air 12/11/17 19:43 97.3 77 18 122/59 (80) 98 Room Air 12/11/17 15:17 98.9 93 18 105/53 (70) 97 Room Air I & O 12/12/17 07:00 Intake Total 4060 ml Output Total 2750 ml Balance 1310 ml Capillary Refill : Less Than 3 Seconds General Appearance: No Apparent Distress, WD/WN, Thin HEENT: PERRL/EOMI, TMs Normal, Normal ENT Inspection, Pharynx Normal Neck: Full Range of Motion, Normal Inspection, Non Tender, Supple, Carotid Bruit Respiratory: Chest Non Tender, No Accessory Muscle Use, No Respiratory Distress Cardiovascular: Regular Rate, Rhythm, No Edema, No Gallop, No JVD, No Murmur, Normal Peripheral Pulses Gastrointestinal: non tender, soft, no organomegaly, no pulsatile mass Extremity: Normal Capillary Refill, Normal Inspection, Normal Range of Motion, Non Tender, No Calf Tenderness, No Pedal Edema Neurologic/Psychiatric: Alert, Oriented x3, No Motor/Sensory Deficits, Normal Mood/Affect Skin: Normal Color, Warm/Dry Lymphatic: No Adenopathy Results Lab Laboratory Tests 12/12/17 05:15: White Blood Count 8.3, Red Blood Count 3.42L, Hemoglobin 10.8L, Hematocrit 32L, Mean Corpuscular Volume 94, Mean Corpuscular Hemoglobin 32, Mean Corpuscular Hemoglobin Concent 33, Red Cell Distribution Width 12.5, Platelet Count 257, Mean Platelet Volume 10.5H, Neutrophils (%) (Auto) 64, Lymphocytes (%) (Auto) 22 , Monocytes (%) (Auto) 13H, Eosinophils (%) (Auto) 1, Basophils (%) (Auto) 0, Neutrophils # (Auto) 5.3, Lymphocytes # (Auto) 1.8, Monocytes # (Auto) 1.1H, Eosinophils # (Auto) 0.0, Basophils # (Auto) 0.0, Sodium Level 136, Potassium Level 3.9, Chloride Level 102, Carbon Dioxide Level 26, Anion Gap 8, Blood Urea Nitrogen 6L, Creatinine 0.68, Estimat Glomerular Filtration Rate > 60, BUN/ Creatinine Ratio 9, Glucose Level 89, Calcium Level 8.2L, Total Bilirubin 0.7, Aspartate Amino Transf (AST/SGOT) 25, Alanine Aminotransferase (ALT/SGPT) 24, Alkaline Phosphatase 28L, Total Protein 6.1L, Albumin 3.9 Assessment/Plan Assessment/Plan Assessment/Plan right flank pain nausea and vomiting constipation colonic stool in left side of colon now, pain still same would consider gallbladder pathology u/s ordered if negative HIDA scan tomorrow npo for u/s Clinical Quality Measures DVT/VTE Risk/Contraindication: Risk Factor Score Per Nursin RFS Level Per Nursing on Admit: 2=Moderate ODESSA CAGE DO Dec 12, 2017 14:22
--- NOTE | 2017-12-12 14:24 | Diagnostic Imaging Report ---
PROCEDURE: US Gallbladder. TECHNIQUE: Multiple real-time grayscale images were obtained over the right upper quadrant in various projections. INDICATION: Right flank and abdominal pain. COMPARISON: None. FINDINGS: The size and echogenicity of the liver is normal. There is no mass. Common bile duct is normal at 2 mm. There is no cholelithiasis or cholecystitis. The pancreas and right kidney are normal. No ascites. IMPRESSION: Negative right upper quadrant ultrasound. Dictated by: Dictated on workstation # [id number]
[2017-12-12] MEDS: SERTRALINE 50 MG (ZOLOFT) TABLET PO SCH (14:42)
[2017-12-12] MEDS: ENOXAPARIN 40 MG/0.4 ML (LOVENOX) SYR SC SCH (14:42)
[2017-12-12 16:00] VITALS: BP 115/58
[2017-12-13 00:07] VITALS: BP 118/58
[2017-12-13 01:01] VITALS: BP 118/58
[2017-12-13] MEDS: POTASSIUM CHLORIDE INJ 20 MEQ in NS IV 1000 ML 1,000 ML IV SCH (04:18)
[2017-12-13 06:29] LABS: BASOPHILS % (AUTO) 1 % (0-10); EOSINOPHILS % (AUTO) 1 % (0-10); HEMATOCRIT 32 % (35-52); HEMOGLOBIN 10.9 G/DL (11.5-16.0); LYMPHOCYTES # (AUTO) 1.4 X 10^3 (1.0-4.0); LYMPHOCYTES % (AUTO) 18 % (12-44); MEAN CORPUSCULAR HEMOGLOBIN 32 PG (25-34); MEAN CORPUSCULAR HGB CONC 34 G/DL (32-36); MEAN CORPUSCULAR VOLUME 94 FL (80-99); MEAN PLATELET VOLUME 10.4 FL (7.4-10.4); MONOCYTES % (AUTO) 13 % (0-12); NEUTROPHILS # (AUTO) 5.3 X 10^3 (1.8-7.8); NEUTROPHILS % (AUTO) 68 % (42-75); PLATELET COUNT 245 10^3/uL (130-400); RED BLOOD COUNT 3.44 10^6/uL (4.35-5.85); RED CELL DISTRIBUTION WIDTH 12.1 % (10.0-14.5); WHITE BLOOD COUNT 7.8 10^3/uL (4.3-11.0)
[2017-12-13 06:46] VITALS: BP 122/76
[2017-12-13 07:05] LABS: ALANINE AMINOTRANSFERASE 26 U/L (0-55); ALBUMIN 3.8 GM/DL (3.2-4.5); ALKALINE PHOSPHATASE 27 U/L (40-136); BILIRUBIN,TOTAL 0.6 MG/DL (0.1-1.0); BUN/CREATININE RATIO 13; CARBON DIOXIDE 25 MMOL/L (21-32); CHLORIDE 99 MMOL/L (98-107); GFR ESTIMATED > 60; GLUCOSE 86 MG/DL (70-105); POTASSIUM 3.9 MMOL/L (3.6-5.0); SODIUM 129 MMOL/L (135-145)
[2017-12-13] MEDS: FAMOTIDINE 20MG/2ML IV (PEPCID) IV SCH ×2 (08:12→22:37)
[2017-12-13 08:30] VITALS: BP 130/60
--- NOTE | 2017-12-13 09:07 | Progress Note ---
Subjective Date Seen by Provider: Dec 13, 2017 Time Seen by Provider: 08:45 Subjective/Events-last exam PT IS A 62 Y/O FEMALE WHO IS KNOWN TO ME FROM CLINIC. SHE PRESENTED TO THE HOSPITAL WITH SEVERE ACUTE ABDOMINAL PAIN - UNCONTROLLED WITH ORAL MEDICATIONS AND SHE WAS ADMITTED TO HAVE PAIN CONTROL WITH IV NARCOTIC MEDICATIONS WELL IV ANTIINFLAMMATORY MEDICATIONS AND FURTHER WORK-UP. I CHANGED PT TO INPATIENT STATUS TODAY DUE TO HER PERSISTENT PAIN AND NEED FOR FURTHER STUDIES FOR WORK-UP OF HER SYMPTOMS. SHE WILL REQUIRE ANOTHER 2 MIDNIGHTS IN THE HOSPITAL FOR FURTHER WORK-UP AND DEFINITIVE TREATMENT - POSSIBLY SURGICAL LYSIS OF ABDOMINAL ADHESIONS. PT CONTINUES TO COMPLAIN OF ABDOMINAL PAIN, NAUSEA, BACK PAIN/FLANK PAIN ON RIGHT Review of Systems General: Fatigue HEENT: No Head Aches Pulmonary: No Dyspnea, No Cough Cardiovascular: No: Chest Pain, Palpitations Gastrointestinal: Nausea, Abdominal Pain Musculoskeletal: back pain (RIGHT FLANK) Neurological: No: Weakness, Confusion Objective Exam Last Set of Vital Signs Vital Signs Date Time Temp Pulse Resp B/P (MAP) Pulse Ox O2 Delivery O2 Flow Rate FiO2 12/13/17 06:46 98.2 77 18 122/76 (91) 97 Room Air Capillary Refill : Less Than 3 Seconds I&O Intake and Output 12/13/17 00:00 Intake Total 1850 ml Output Total 2950 ml Balance -1100 ml Intake Oral 740 ml IV Total 1110 ml Output Urine Total 2950 ml General: Alert, Oriented X3, Cooperative HEENT: Atraumatic, PERRLA Neck: Supple Lungs: Clear to Auscultation Heart: Regular Rate, Normal S1, Normal S2 Abdomen: Normal Bowel Sounds, Other (TTP RUQ, RIGHT FLANK) Extremities: No Clubbing Skin: No Rashes Neuro: Cranial Nerves 3-12 NL Psych/Mental Status: Mental Status NL, Mood NL Results Lab Laboratory Tests 12/13/17 05:30: White Blood Count 7.8, Red Blood Count 3.44L, Hemoglobin 10.9L, Hematocrit 32L, Mean Corpuscular Volume 94, Mean Corpuscular Hemoglobin 32, Mean Corpuscular Hemoglobin Concent 34, Red Cell Distribution Width 12.1, Platelet Count 245, Mean Platelet Volume 10.4, Neutrophils (%) (Auto) 68, Lymphocytes (%) (Auto) 18 , Monocytes (%) (Auto) 13H, Eosinophils (%) (Auto) 1, Basophils (%) (Auto) 1, Neutrophils # (Auto) 5.3, Lymphocytes # (Auto) 1.4, Monocytes # (Auto) 1.0, Eosinophils # (Auto) 0.0, Basophils # (Auto) 0.0, Sodium Level 129L, Potassium Level 3.9, Chloride Level 99, Carbon Dioxide Level 25, Anion Gap 5, Blood Urea Nitrogen 8, Creatinine 0.60, Estimat Glomerular Filtration Rate > 60, BUN/ Creatinine Ratio 13, Glucose Level 86, Calcium Level 8.0L, Total Bilirubin 0.6, Aspartate Amino Transf (AST/SGOT) 22, Alanine Aminotransferase (ALT/SGPT) 26, Alkaline Phosphatase 27L, Total Protein 6.0L, Albumin 3.8 Assessment/Plan Assessment/Plan Assess & Plan/Chief Complaint ABDOMINAL PAIN FLANK PAIN CONSTIPATION HYPONATREMIA ABDOMINAL PAIN WITH FLANK PAIN AND CONSTIPATION - WAITING ON HIDA SCAN - WILL DISCUSS WITH DR. CAGE - SHE MAY NEED TO HAVE LAPROSCOPIC SURGERY FOR LYSIS OF ADHESIONS IF HER GB IS NOT THE SOURCE OF THE PROBLEMS. HYPONATREMIA - CONTINUE WITH NORMAL SALINE IV. I CHANGED PT TO INPATIENT STATUS TODAY DUE TO HER PERSISTENT PAIN AND NEED FOR FURTHER STUDIES FOR WORK-UP OF HER SYMPTOMS. SHE WILL REQUIRE ANOTHER 2 MIDNIGHTS IN THE HOSPITAL FOR FURTHER WORK-UP AND DEFINITIVE TREATMENT - POSSIBLY SURGICAL LYSIS OF ABDOMINAL ADHESIONS. Clinical Quality Measures DVT/VTE Risk/Contraindication: Risk Factor Score Per Nursin RFS Level Per Nursing on Admit: 2=Moderate SHAR LAZO MD Dec 13, 2017 09:07
[2017-12-13] MEDS: CATHETER FLUSH 10 ML SYR IV PRN (10:46)
[2017-12-13] MEDS: SERTRALINE 50 MG (ZOLOFT) TABLET PO SCH (11:16)
[2017-12-13] MEDS: NS W/KCL 20 MEQ/L 1,000 ML IV SCH ×2 (11:16→19:55)
[2017-12-13] MEDS: HYDROmorphone (DILAUDID) 2 MG/ML VIAL IV PRN (13:03)
[2017-12-13] MEDS: ENOXAPARIN 40 MG/0.4 ML (LOVENOX) SYR SC SCH (13:11)
--- NOTE | 2017-12-13 13:24 | Diagnostic Imaging Report ---
INDICATION: Right upper quadrant pain. TECHNIQUE: Acquisitions were acquired over the abdomen after the patient was administered 5.11 mCi of technetium 99m Choletec. Patient ingested 8 ounces of ensure + at 1 hour of the exam to obtain ejection fraction. FINDINGS: There is homogeneous uptake of isotope throughout the liver. There is significant accumulation within the gallbladder by 60 minutes. There is free flow of activity in the small bowel. Ejection fraction is calculated to be 23% IMPRESSION: No evidence of cystic duct obstruction however there is an abnormally low ejection fraction of 23%. Dictated by: Dictated on workstation # [id number]
[2017-12-13 14:30] VITALS: BP 123/55
[2017-12-13 15:34] VITALS: BP 112/59
--- NOTE | 2017-12-13 19:26 | Progress Note ---
Subjective Date Seen by Provider: Dec 13, 2017 Time Seen by Provider: 10:06 Subjective/Events-last exam Patient slightly less pain. Still with occasional nausea. Pain around 4-5/10 right flank. Denies fever sweats chills shortness of breath or chest pain. Hida performed today EF 23%. Objective Exam Vital Signs Date Time Temp Pulse Resp B/P (MAP) Pulse Ox O2 Delivery O2 Flow Rate FiO2 12/13/17 15:34 98.6 69 20 112/59 (76) 97 Room Air 12/13/17 14:30 99.0 73 20 123/55 (77) 94 Room Air 12/13/17 08:30 98.7 73 20 130/60 (83) 97 Room Air 12/13/17 06:46 98.2 77 18 122/76 (91) 97 Room Air 12/13/17 01:01 97.8 75 17 118/58 (78) 95 Room Air 12/13/17 00:07 97.8 75 17 118/58 (78) 95 Room Air I & O 12/13/17 07:00 Intake Total 490 ml Output Total 750 ml Balance -260 ml Capillary Refill : Less Than 3 Seconds General Appearance: No Apparent Distress, WD/WN, Thin HEENT: PERRL/EOMI, TMs Normal, Normal ENT Inspection, Pharynx Normal Neck: Full Range of Motion, Normal Inspection, Non Tender, Supple, Carotid Bruit Respiratory: Chest Non Tender, No Accessory Muscle Use, No Respiratory Distress Cardiovascular: Regular Rate, Rhythm, No Edema, No Gallop, No JVD, No Murmur, Normal Peripheral Pulses Gastrointestinal: non tender, soft, no organomegaly, no pulsatile mass Extremity: Normal Capillary Refill, Normal Inspection, Normal Range of Motion, Non Tender, No Calf Tenderness, No Pedal Edema Neurologic/Psychiatric: Alert, Oriented x3, No Motor/Sensory Deficits, Normal Mood/Affect Skin: Normal Color, Warm/Dry Lymphatic: No Adenopathy Results Lab Laboratory Tests 12/13/17 05:30: White Blood Count 7.8, Red Blood Count 3.44L, Hemoglobin 10.9L, Hematocrit 32L, Mean Corpuscular Volume 94, Mean Corpuscular Hemoglobin 32, Mean Corpuscular Hemoglobin Concent 34, Red Cell Distribution Width 12.1, Platelet Count 245, Mean Platelet Volume 10.4, Neutrophils (%) (Auto) 68, Lymphocytes (%) (Auto) 18 , Monocytes (%) (Auto) 13H, Eosinophils (%) (Auto) 1, Basophils (%) (Auto) 1, Neutrophils # (Auto) 5.3, Lymphocytes # (Auto) 1.4, Monocytes # (Auto) 1.0, Eosinophils # (Auto) 0.0, Basophils # (Auto) 0.0, Sodium Level 129L, Potassium Level 3.9, Chloride Level 99, Carbon Dioxide Level 25, Anion Gap 5, Blood Urea Nitrogen 8, Creatinine 0.60, Estimat Glomerular Filtration Rate > 60, BUN/ Creatinine Ratio 13, Glucose Level 86, Calcium Level 8.0L, Total Bilirubin 0.6, Aspartate Amino Transf (AST/SGOT) 22, Alanine Aminotransferase (ALT/SGPT) 26, Alkaline Phosphatase 27L, C-Reactive Protein High Sensitivity 0.04, Total Protein 6.0L, Albumin 3.8 Assessment/Plan Assessment/Plan Assessment/Plan ABDOMINAL PAIN FLANK PAIN CONSTIPATION HYPONATREMIA Biliary dyskinesia Patient with hida scan of 23%. Consistent with biliary dyskinesia. Discussed risks and benefits of laparoscopioc cholecystectom intraoperative cholangiogram all other indicated procedures and wishes to proceed. Scheduled for tomorrow. Npo after midnight Clinical Quality Measures DVT/VTE Risk/Contraindication: Risk Factor Score Per Nursin RFS Level Per Nursing on Admit: 2=Moderate ODESSA CAGE DO Dec 13, 2017 19:26
[2017-12-13] MEDS: KETOROLAC 15 MG/ML VIAL IV PRN (22:42)
[2017-12-14 00:49] VITALS: BP 114/58
[2017-12-14 06:47] LABS: MEAN PLATELET VOLUME 10.5 FL (7.4-10.4); RED BLOOD COUNT 3.75 10^6/uL (4.35-5.85); RED CELL DISTRIBUTION WIDTH 12.3 % (10.0-14.5); WHITE BLOOD COUNT 7.7 10^3/uL (4.3-11.0)
[2017-12-14 07:10] LABS: ALANINE AMINOTRANSFERASE 23 U/L (0-55); ALBUMIN 3.7 GM/DL (3.2-4.5); ALKALINE PHOSPHATASE 25 U/L (40-136); BILIRUBIN,TOTAL 0.9 MG/DL (0.1-1.0); BUN/CREATININE RATIO 8; CALCIUM 8.3 MG/DL (8.5-10.1); CARBON DIOXIDE 26 MMOL/L (21-32); CHLORIDE 107 MMOL/L (98-107); CREATININE SERUM 0.64 MG/DL (0.60-1.30); GFR ESTIMATED > 60; GLUCOSE 87 MG/DL (70-105); POTASSIUM 3.9 MMOL/L (3.6-5.0); SODIUM 140 MMOL/L (135-145); TOTAL PROTEIN 5.9 GM/DL (6.4-8.2)
[2017-12-14 08:00] VITALS: BP 115/57
[2017-12-14] MEDS: SERTRALINE 50 MG (ZOLOFT) TABLET PO SCH (08:30)
[2017-12-14] MEDS: KETOROLAC 15 MG/ML VIAL IV PRN (08:30)
--- NOTE | 2017-12-14 08:34 | Progress Note ---
Subjective Date Seen by Provider: Dec 14, 2017 Time Seen by Provider: 08:34 Subjective/Events-last exam PT REPORTS THAT SHE IS HUNGRY, STILL HAVING PAIN IN HER RIGHT FLANK AND IS READY FOR SURGERY TODAY. Review of Systems General: No Chills, Fatigue HEENT: No Dysphasia, No Sore Throat Pulmonary: No Dyspnea, No Cough Cardiovascular: No: Chest Pain, Palpitations Gastrointestinal: Abdominal Pain (RIGHT FLANK), No: Nausea Genitourinary: No Dysuria Neurological: No: Weakness Objective Exam Last Set of Vital Signs Vital Signs Date Time Temp Pulse Resp B/P (MAP) Pulse Ox O2 Delivery O2 Flow Rate FiO2 12/14/17 00:49 98.2 68 16 114/58 (76) 96 Room Air Capillary Refill : Less Than 3 Seconds I&O Intake and Output 12/14/17 00:00 Intake Total 580 ml Output Total 3800 ml Balance -3220 ml Intake Oral 580 ml Output Urine Total 3800 ml # Voids 2 General: Alert, Oriented X3, Cooperative HEENT: Atraumatic, PERRLA Neck: Supple Lungs: Clear to Auscultation Heart: Regular Rate, Normal S1, Normal S2 Abdomen: Normal Bowel Sounds, Other (TTP RUQ, RIGHT FLANK) Extremities: No Clubbing Skin: No Rashes Neuro: Cranial Nerves 3-12 NL Psych/Mental Status: Mental Status NL, Mood NL Results Lab Laboratory Tests 12/14/17 05:45: White Blood Count 7.7, Red Blood Count 3.75L, Hemoglobin 12.0, Hematocrit 35, Mean Corpuscular Volume 93, Mean Corpuscular Hemoglobin 32, Mean Corpuscular Hemoglobin Concent 34, Red Cell Distribution Width 12.3, Platelet Count 267, Mean Platelet Volume 10.5H, Sodium Level 140, Potassium Level 3.9, Chloride Level 107, Carbon Dioxide Level 26, Anion Gap 7, Blood Urea Nitrogen 5L, Creatinine 0.64, Estimat Glomerular Filtration Rate > 60, BUN/Creatinine Ratio 8 , Glucose Level 87, Calcium Level 8.3L, Total Bilirubin 0.9, Aspartate Amino Transf (AST/SGOT) 21, Alanine Aminotransferase (ALT/SGPT) 23, Alkaline Phosphatase 25L, Total Protein 5.9L, Albumin 3.7 Assessment/Plan Assessment/Plan Assess & Plan/Chief Complaint ABDOMINAL PAIN FLANK PAIN CONSTIPATION HYPONATREMIA ABDOMINAL PAIN WITH FLANK PAIN AND CONSTIPATION - - HIDA SCAN POSITIVE FOR UNDER -FUNCTIONING GALLBLADDER - PLANNING ON CHOLECYSTECTOMY TODAY. HYPONATREMIA - CONTINUE WITH NORMAL SALINE IV. Clinical Quality Measures DVT/VTE Risk/Contraindication: Risk Factor Score Per Nursin RFS Level Per Nursing on Admit: 2=Moderate SHAR LAZO MD Dec 14, 2017 08:34
[2017-12-14] MEDS: FAMOTIDINE 20MG/2ML IV (PEPCID) IV SCH (08:36)
[2017-12-14] MEDS ORDERED: proPOfol 200 MG/20 ML (DIPRIVAN) VIAL IV ONE (11:01)
[2017-12-14] MEDS ORDERED: fentaNYL INJECTION 100 MCG/2 ML AMP ONE (11:01)
[2017-12-14] MEDS ORDERED: LIDOCAINE PF 2% 5 ML (XYLOCAINE) VIAL ONE (11:01)
[2017-12-14] MEDS ORDERED: ONDANSETRON 4 MG/2 ML (SDV) Z0FRAN ONE ×2 (11:01→12:05)
[2017-12-14] MEDS ORDERED: SEVOFLURANE (ULTANE) 15 ML INHAL SOLN ONE ×3 (11:01→11:13)
[2017-12-14] MEDS ORDERED: ROCURONIUM 10 MG/ML 5 ML SYRINGE IV ONE (11:01)
[2017-12-14] MEDS ORDERED: MIDAZOLAM 2 MG/2 ML (VERSED) VIAL ONE (11:01)
[2017-12-14] MEDS ORDERED: DEXAMETHASONE 10 MG/ML (DECADRON) 1 ML VIAL ONE (11:01)
[2017-12-14] MEDS: NS W/KCL 20 MEQ/L 1,000 ML IV SCH (11:23)
[2017-12-14] MEDS ORDERED: LIDOCAINE 1% INJ 20 ML 20 ML VIAL ONE (11:39)
[2017-12-14] MEDS ORDERED: BUPIVACAINE 0.5% 30 ML (SENSORCAINE) VIAL ONE (11:39)
[2017-12-14] MEDS ORDERED: FAMOTIDINE 20MG/2ML IV (PEPCID) ONE (12:05)
[2017-12-14] MEDS ORDERED: SCOPOLAMINE 1.5 MG (TRANSDERM-SCOP) PATCH ONE (12:05)
[2017-12-14] MEDS: LACTATED RINGERS 1,000 ML IV PRN ×2 (12:05→12:45)
[2017-12-14] MEDS ORDERED: ceFAZolin 1,000 MG (ANCEF) VIAL ONE (12:09)
--- NOTE | 2017-12-14 12:17 | Progress Note-Pre Operative ---
Pre-Operative Progress Note H&P Reviewed The H&P was reviewed, patient examined and no changes noted. Date Seen by Provider: Dec 14, 2017 Time Seen by Provider: 12:17 Date H&P Reviewed: Dec 14, 2017 Time H&P Reviewed: 12:17 Pre-Operative Diagnosis: biliary dyskinesia ODESSA CAGE DO Dec 14, 2017 12:17
[2017-12-14] MEDS ORDERED: ceFAZolin INJECTION 1,000 MG in NS (IVPB) 100 ML IV ONE (12:30)
[2017-12-14] MEDS ORDERED: PHENYLEPHRINE 100 MCG/ML 10 ML (ANESTHESIA) SYR ONE (12:39)
[2017-12-14] MEDS ORDERED: NEOSTIGMINE 1 MG/ML 5 ML SYRINGE ONE (13:02)
[2017-12-14] MEDS ORDERED: GLYCOPYRROLATE 0.2 MG/ML (ROBINUL) 2 ML VIAL ONE (13:02)
--- NOTE | 2017-12-14 13:07 | Progress Note-Post Operative ---
Post-Operative Progess Note Surgeon (s)/Wet End Helper (s) Surgeon ODESSA CAGE DO Wet End Helper: Dr. Pratt Pre-Operative Diagnosis biliary dyskinesia Post-Operative Diagnosis same Procedure & Operative Findings Date of Procedure 12/14/17 Procedure Performed/Findings lap kasey c ioc Anesthesia Type general Estimated Blood Loss Estimated blood loss (mL): minimal Specimens/Packing Specimens Removed gallbladder ODESSA CAGE DO Dec 14, 2017 13:06
--- NOTE | 2017-12-14 13:10 | Discharge Inst-Simple/Standard ---
Discharge Inst-Standard Discharge Medications New, Converted or Re-Newed RX: RX on Chart Patient Instructions/Follow Up Plan of Care/Instructions/FU: 2 weeks Ephraim Activity as Tolerated: No Discharge Diet: Regular Diet Other Inst to Patient Follow up Appt: Make appointment for 2 weeks. Instructions: No lifting greater than 10 pounds. No strenuous activity. May shower in 24 hours, no tub bath or soaking. Use incentive spirometer at home as directed. No Smoking Skin/Wound Care: May remove bandages. You have special glue over incisions it will fall off on its own. Symptoms to Report: Appetite Changes, Extremity Discoloration, Numbness/Tingling, Swelling Increased , Bleeding Excessive, Eyesight Changes, Pain Increased, Urine Color Change, Constipation(Persistent), Fever over 101 degree F, Pain/Pressure in chest, Urinating Difficulty, Cough Up/Vomit Blood, Heart Beat Irreg/Pounding, Pain/ Pressure in jaw, Vaginal Bleeding Increase, Cramps in feet or legs, Lightheadedness, Pain/Pressure in shoulder, Diarrhea(Persistent), Memory Changes Suddenly, Questions/Concerns, Weight gain consecutive days, Dizziness/ Fainting, Nausea/Vomiting, Shortness of Breath, Weight gain over 2 pounds. If eyes or skin turn yellow notify physician. If questions or concerns contact your physician Or seek help at emergency department. ODESSA CAGE DO Dec 14, 2017 13:10
[2017-12-14] MEDS ORDERED: ACHD5005 PO (13:12)
[2017-12-14] MEDS ORDERED: DOCU-143 PO (13:12)
--- NOTE | 2017-12-14 13:33 | Diagnostic Imaging Report ---
INDICATION: Laparoscopic cholecystectomy. Fluoroscopy was utilized in the operating room during performance of laparoscopic cholecystectomy. Intraoperative cholangiogram was performed via cystic duct remnant. Contrast opacifies the intra-and extrahepatic bile ducts without evidence of filling defect or occlusion. Contrast passes into the duodenum. IMPRESSION: No intraoperative cholangiographic evidence of retained choledocholith. Dictated by: Dictated on workstation # [id number]
[2017-12-14] MEDS ORDERED: MEPERIDINE (DEMEROL) INJ 50 MG/ML ONE (13:39)
[2017-12-14] MEDS ORDERED: morphine INJ 10 MG/ML 1ML (SYR OR VIAL) IVP PRN (13:45)
[2017-12-14] MEDS ORDERED: MEPERIDINE (DEMEROL) INJ 50 MG/ML IVP PRN (13:45)
--- NOTE | 2017-12-14 14:57 | Anesthesia-General Post-Op ---
General Patient Condition Mental Status/LOC: Same as Preop Cardiovascular: Satisfactory Nausea/Vomiting: Absent Respiratory: Satisfactory Pain: Controlled Complications: Absent Post Op Complications Complications None Follow Up Care/Instructions Patient Instructions None needed. Anesthesia/Patient Condition Patient Condition Patient is doing well, no complaints, stable vital signs, no apparent adverse anesthesia problems. No complications reported per nursing. COLIN SY CRNA Dec 14, 2017 14:57
[2017-12-14] MEDS: ENOXAPARIN 40 MG/0.4 ML (LOVENOX) SYR SC SCH ×2 (15:24→15:28)
[2017-12-14] MEDS: ONDANSETRON 4 MG/2 ML (SDV) Z0FRAN IV PRN (15:24)
[2017-12-14 16:00] VITALS: BP 140/69
[2017-12-14] MEDS ORDERED: TRAM50TA2 PO (18:35)
--- NOTE | 2017-12-14 20:53 | OPERATIVE REPORT ---
DATE OF SERVICE: 12/14/2017 PREOPERATIVE DIAGNOSIS: Biliary dyskinesia. POSTOPERATIVE DIAGNOSIS: Biliary dyskinesia. PROCEDURE: Laparoscopic cholecystectomy with intraoperative cholangiogram. SURGEON: Odessa Ye DO. RUSH SEATER: Sp Pratt DO, assisted in retraction, dissection and closure. ANESTHESIA: General. ESTIMATED BLOOD LOSS: Minimal. COMPLICATIONS: None. INDICATIONS: The patient is a 62-year-old female who presented with right flank pain and appearance constipation. The pain continued to be persistent and gallbladder ultrasound was performed, which was normal. The patient then had a HIDA scan performed, which demonstrated a gallbladder ejection fraction of 23%. The patient was explained risks and benefits of procedure and wished to proceed with procedure. Consent was signed on the chart. DESCRIPTION OF PROCEDURE: The patient was taken to the operating suite, she was prepped and draped in sterile fashion. Surgical pause was performed. A Mosquera technique was used to enter the abdomen just above the umbilicus. A 0 Vicryl suture was then placed in [id number] fashion for closure at the end of the case. A balloon trocar was inserted into the abdomen and pneumoperitoneum was achieved. Under direct visualization of the laparoscope, a 5 mm trocar was placed in the subxiphoid region and two 5 mm trocars were placed in the right upper quadrant. Gallbladder was grasped, elevated. The cystic duct and cystic artery were then dissected out. Clips were placed on the proximal and distal portion of the cystic artery and clip was placed on the distal portion of the cystic duct. The duct was then partially transected and arrow catheter was inserted, but . Therefore, a clip was used to hold that in place and cholangiogram was performed. There were no filling defects. Contrast made its way into the duodenum without difficulty. The clip was removed. The catheter was removed. Clips were placed on the proximal portion of the cystic duct and this was then transected along with the artery. Hook cautery was used to dissect the gallbladder from the gallbladder fossa achieving hemostasis. Once removed, it was placed in an Endobag and with a 12 mm trocar site. The abdomen was then reinspected. There is no other pathology visualized. Hemostasis was achieved. Abdomen was irrigated with copious amounts of irrigation and suction. The abdomen was then desufflated, trocars were removed. The fascial defect of 12 mm trocar site was closed using the previously placed 0 Vicryl. The skin was then closed with 4-0 Monocryl in a subcuticular fashion. Prior to incisions, 0.5% Marcaine and 1% lidocaine 50:50 ratio was used to anesthetize the incision sites. The areas were then washed and dried at the end of the procedure and skin Affix was placed over the incisions. The patient tolerated procedure well without any complications. She was taken to recovery room in stable condition. Job ID: [id number] DocumentID: [id number] Dictated Date: 12/14/2017 13:55:32 Fire Inspector Date: 12/14/2017 20:52:16 Dictated By: ODESSA YE DO
--- NOTE | 2017-12-15 14:41 | Anesthesia-General Post-Op ---
General Patient Condition Mental Status/LOC: Same as Preop Cardiovascular: Satisfactory Nausea/Vomiting: Absent Respiratory: Satisfactory Pain: Controlled Complications: Absent Post Op Complications Complications None Follow Up Care/Instructions Patient Instructions None needed. Anesthesia/Patient Condition Patient Condition Patient is doing well, no complaints, stable vital signs, no apparent adverse anesthesia problems. No complications reported per nursing. GENIA JOSE CRNA Dec 15, 2017 14:41
== END 2017-12-14 18:55 | disposition home or self-care (01) | DRG 357 ==
LOC: EDUNIT# 14:55 → ER 14:57 → UNDOADMOB 20:14 → 4TH 20:14 → OBSVTOIN 12-13 09:01 → INTOOBSV 12-13 09:01
PROVIDERS: ADMIT Internal Medicine; ATTEND Internal Medicine
PROC: BF111ZZ Fluoroscopy of Biliary and Pancreatic Ducts using Low Osmolar Contrast (ICD-10-PCS; 2017-12-14)
PROC: 0FT44ZZ Resection of Gallbladder, Percutaneous Endoscopic Approach (ICD-10-PCS; principal; 2017-12-14 12:19)
DX: K56.609 Unspecified intestinal obstruction, unspecified as to partial versus complete obstruction (principal); R11.2 Nausea with vomiting, unspecified; K59.00 Constipation, unspecified; E87.1 Hypo-osmolality and hyponatremia; K82.8 Other specified diseases of gallbladder
CPT/HCPCS: 36415; 71046; 74018; 74176; 74177; 76705; 78227; 80048; 80053; 81000; 83735; 85025; 85027; 85379; 86141; 87081; 94664; G0378

== ENCOUNTER 2018-04-13 07:59 | Outpatient (RCR) | payer BC ==
[~2018-04-13 07:59] MED LIST changes: +ACHD5005 PO; +CHOL500044 PO; +CYAN50008 PO; +DOCU-143 PO; +MAGN250T2 PO; +MELO15TA39 PO; +SERT50TA9 PO; +TRAM50TA2 PO
== END 2018-05-16 | disposition home or self-care (01) ==
PROVIDERS: ATTEND Physician Assistant Medical
DX: M25.561 Pain in right knee (principal); Z98.890 Other specified postprocedural states

== ENCOUNTER → 2018-08-16 | Outpatient (CLI) | payer BC ==
--- NOTE | 2018-08-16 12:42 | Diagnostic Imaging Report ---
INDICATION: Routine screening. COMPARISON: 08/11/2017 and 08/10/2016. TECHNIQUE: 2D and 3D bilateral screening mammography was performed with CAD. FINDINGS: Scattered fibroglandular densities are identified bilaterally. The parenchymal pattern is stable. No mass or malignant appearing microcalcifications are seen. The axillae are unremarkable. IMPRESSION: No mammographic features suspicious for malignancy are identified. ACR BI-RADS Category 1: Negative. Result letter will be mailed to the patient. Note: At least 10% of breast cancer is not imaged by mammography. Dictated by: Dictated on workstation # [id number]
== END ==
LOC: RAD 08:55
PROVIDERS: ATTEND Family Medicine
DX: Z12.31 Encounter for screening mammogram for malignant neoplasm of breast (principal)
CPT/HCPCS: 77067

== ENCOUNTER 2018-11-16 09:03 | Outpatient (RCR) | payer BC | END 2018-11-24 11:41 | disposition home or self-care (01) | PROVIDERS: ATTEND Physician Assistant Medical | DX: M25.561 Pain in right knee (principal); Z98.890 Other specified postprocedural states ==

== ENCOUNTER → 2019-08-23 | Outpatient (CLI) | payer BC ==
--- NOTE | 2019-08-23 09:53 | Diagnostic Imaging Report ---
INDICATION: Screening. TECHNIQUE: The current study was also evaluated with a Computer Aided Detection (CAD) system. 3-D Tomographic imaging was also performed. COMPARISON: 08/16/2018, 08/11/2017, and 08/10/2016. FINDINGS: The fibroglandular tissue is heterogeneously dense bilaterally. There is no dominant mass, spiculated lesion, or suspicious calcification identified. The skin, nipples, and axillae are unremarkable. IMPRESSION: Negative. ACR BI-RADS Category 1: Negative. Result letter will be mailed to the patient. Note: At least 10% of breast cancer is not imaged by mammography. Dictated by: Dictated on workstation # [id number]
== END ==
LOC: RAD 08:00
PROVIDERS: ATTEND Family Medicine
DX: Z12.31 Encounter for screening mammogram for malignant neoplasm of breast (principal)
CPT/HCPCS: 77067

== ENCOUNTER → 2020-08-27 | Outpatient (CLI) | payer BC ==
[~2020-08-27] MED LIST changes: -TRAM50TA2 PO; +TRM50T PO
--- NOTE | 2020-08-27 10:52 | Diagnostic Imaging Report ---
Digital mammogram. Indication: Bilateral screening This study was compared to the prior exams of 08/23/2019, 08/16/2018 and 08/11/2017. At this time there are no current complaints. The current study was also evaluated with a Computer Aided Detection (CAD) system. FINDINGS: The fibroglandular tissue in both breasts is heterogeneously dense. This does limit the sensitivity of this exam. Overall, there does not appear to have been any significant change when compared to the prior study. No primary or secondary sign of malignancy is noted. IMPRESSION: There is no radiographic evidence for malignancy. ACR BI-RADS Category 1: Negative. Result letter will be mailed to the patient. Note: At least 10% of breast cancer is not imaged by mammography. Dictated by: Dictated on workstation # [id number]
== END ==
LOC: RAD 08:00
PROVIDERS: ATTEND Family Medicine
DX: Z12.31 Encounter for screening mammogram for malignant neoplasm of breast (principal)
CPT/HCPCS: 77063; 77067

== ENCOUNTER 2020-12-19 08:30 | Outpatient (RCR) | payer BC ==
[~2020-12-19 08:30] MED LIST changes: +SERT-413 PO; -SERT50TA9 PO
== END 2020-12-30 15:24 | disposition home or self-care (01) ==
PROVIDERS: ATTEND Physician Assistant
DX: M50.123 Cervical disc disorder at C6-C7 level with radiculopathy (principal); M75.42 Impingement syndrome of left shoulder

== ENCOUNTER → 2021-01-03 | Outpatient (CLI) | payer BC | LOC: LABNPT 06:01 | PROVIDERS: ATTEND Orthopaedic Surgery Orthopaedic Surgery of the Spine | DX: Z01.812 Encounter for preprocedural laboratory examination (principal); Z20.822 Contact with and (suspected) exposure to COVID-19 | CPT/HCPCS: 87635 ==

== ENCOUNTER 2021-07-03 08:50 | Outpatient (RCR) | payer BC ==
[~2021-07-03 08:50] MED LIST changes: -CYAN50008 PO; +CYAN50009 PO
== END 2021-07-24 | disposition home or self-care (01) ==
PROVIDERS: ATTEND Physician Assistant Medical
DX: M75.42 Impingement syndrome of left shoulder (principal)

== ENCOUNTER → 2021-08-28 | Outpatient (CLI) | payer BC ==
--- NOTE | 2021-08-28 09:52 | Diagnostic Imaging Report ---
Indication: Routine screening. Correlation is made with prior mammogram from 08/27/2020 and 08/23/2019. 2-D and 3-D bilateral screening mammography was performed with CAD. Scattered fibroglandular densities are identified bilaterally. The parenchymal pattern is stable. No mass or malignant-appearing microcalcifications are seen. Axillae are unremarkable. IMPRESSION: BI-RADS Category 1 No mammographic features suspicious for malignancy are identified. ACR BI-RADS Category 1: Negative. Result letter will be mailed to the patient. Note: At least 10% of breast cancer is not imaged by mammography. Dictated by: Dictated on workstation # [id number]
== END ==
LOC: RAD 08:00
PROVIDERS: ATTEND Family Medicine
DX: Z12.31 Encounter for screening mammogram for malignant neoplasm of breast (principal)
CPT/HCPCS: 77063; 77067

== ENCOUNTER → 2022-08-31 | Outpatient (CLI) | payer BC ==
[~2022-08-31] MED LIST changes: -MAGN250T2 PO; +MAGN250T31 PO
--- NOTE | 2022-08-31 11:08 | Diagnostic Imaging Report ---
INDICATION: Routine screening. Comparison is made with prior mammogram 08/28/2021 and 08/27/2020. 2-D and 3-D bilateral screening mammography was performed CAD. CAD is utilized. The current study was also evaluated with a Computer Aided Detection (CAD) system. Scattered fibroglandular densities are identified bilaterally. Benign nodules in the outer aspects of both breasts appear stable. No new mass or malignant-appearing microcalcifications are seen. Axillae are unremarkable. IMPRESSION: BI-RADS Category 2 No mammographic features suspicious for malignancy are identified. ACR BI-RADS Category 2: Benign findings. Result letter will be mailed to the patient. Note: At least 10% of breast cancer is not imaged by mammography. Dictated by: Dictated on workstation # [id number]
== END ==
LOC: RAD 07:30
PROVIDERS: ATTEND Family Medicine
DX: Z12.31 Encounter for screening mammogram for malignant neoplasm of breast (principal)
CPT/HCPCS: 77063; 77067

== ENCOUNTER → 2022-10-27 | Outpatient (CLI) | payer MEDICARE, OTHER ==
--- NOTE | 2022-10-27 09:21 | Diagnostic Imaging Report ---
INDICATION: Postmenopausal screening COMPARISON: Baseline FINDINGS: AP Spine L1-L4: [BMD (g/cm2): 1.122] [T-Score: -0.6] [Z-Score: 1.6] [BMD Previous: NA] [BMD % Change: NA] LT Hip Neck: [BMD (g/cm2): 0.743] [T-Score: -2.1] [Z-Score: -0.3] LT Hip Total: [BMD (g/cm2):0.717] [T-Score:-2.3] [Z-Score: -0.7] [BMD Previous: NA] [BMD % Change: NA] RT Hip Neck: [BMD (g/cm2):0.669] [T-Score:-2.7] [Z-Score:-08] RT Hip Total: [BMD (g/cm2):0.646] [T-score:-2.9] [Z-Score:-1.2] [BMD Previous:NA] [BMD % Change:NA] *Indicates significant change from prior examination based on 95% confidence level. World Health Organization criteria for BMD interpretation classify patients as Normal (T-score at or above -1.0), Osteopenic (T-score between -1.0 and -2.5) or Osteoporotic (T-score at or below -2.5). LIMITATIONS AND MODIFICATION: None. FRACTURE RISK (FRAX SCORE): The ten year probability of (%): Major Osteoporotic Fracture: [12.0] Hip Fracture: [3.1] IMPRESSION: 1. Osteoporosis. 2. Baseline examination. 3. See below National Osteoporosis Foundation guidelines on when to potentially initiate pharmacologic therapy. Based on the National Osteoporosis Foundation Guidelines, pharmacologic treatment should be initiated in any of the following, unless clinical conditions suggest otherwise: * Any patient with prior fragility fracture of the hip or vertebrae. A spine fracture indicates 5X risk for subsequent spine fracture and 2X risk for subsequent hip fracture. * Osteoporosis (T-score <-2.5). * Postmenopausal women and men age 50 and older with low bone mass/osteopenia (T-score between -1.0 and -2.5) by DXA and 10-year major osteoporotic fracture greater than 20% or a 10-year probability of hip fracture greater than 3%. These fracture risks are supplied above in the FRAX score, if applicable. * Clinician judgement and/or patient preferences may indicate treatment for people with 10-year fracture probabilities above or below these levels. Dictated by: Dictated on workstation # [id number]
== END ==
LOC: EEVIPCON 08:30 → RAD 08:30
PROVIDERS: ATTEND Nurse Practitioner Family
DX: M81.0 Age-related osteoporosis without current pathological fracture (principal); Z78.0 Asymptomatic menopausal state
CPT/HCPCS: 77080